=== PATIENT | female | born 1985 | race Asian ===

== ENCOUNTER → 2020-09-18 08:01 | Outpatient (CLI) | payer OTHER, SELFPAY ==
[2020-09-18 09:43] LABS: Alanine Aminotransferase 17 IU/L (<35); Albumin 4.7 g/dL (3.5-5.0); Albumin Globulin Ratio 1.5 (1.0-2.8); Alkaline Phosphatase 66 U/L (38-126); Aspartate Aminotransferase 28 IU/L (14-36); BUN Creatinine Ratio 15.2 (6-22); Bilirubin Total 0.8 mg/dL (0.2-1.3); Blood Urea Nitrogen 10 mg/dL (7-17); Calcium 11.1 mg/dL (8.4-10.2); Carbon Dioxide 28 mmol/L (22-32); Chloride 104 mmol/L (98-107); Cholesterol 240 mg/dL (140-199); Estimated Glomerular Filt Rate > 60.0 mL/min (>60); Globulin 3.1 g/dL (1.7-4.1); Glucose 98 mg/dL (70-100); HEMOLYSIS < 15 (0-50); Potassium 4.6 mmol/L (3.4-5.1); Sodium 136 mmol/L (137-145); Total Protein 7.8 g/dL (6.3-8.2); Triglycerides 88 mg/dL (35-150)
[2020-09-18 10:14] LABS: HDL Cholesterol 114 mg/dL (40-60); LDL Cholesterol Calculated 108 mg/dL (<100)
== END ==
PROVIDERS: PCP Family Medicine; Referring Provider Family Medicine; Visit Provider Family Medicine
DX: Z00.01 Encounter for general adult medical examination with abnormal findings (principal); R63.6 Underweight
CPT/HCPCS: 36415; 80053; 80061; 83036

== ENCOUNTER → 2020-09-30 11:48 | Outpatient (CLI) | payer OTHER, SELFPAY ==
[2020-10-01 09:36] LABS: Calcium 10.7 mg/dL (8.7-10.2); Parathyroid Hormone, Intact 33 pg/mL (15-65)
== END ==
PROVIDERS: PCP Family Medicine; Referring Provider Family Medicine; Visit Provider Family Medicine
DX: E83.52 Hypercalcemia (principal)
CPT/HCPCS: 36415; 82310; 83970

== ENCOUNTER → 2020-10-20 17:11 | Outpatient (CLI) | payer OTHER, SELFPAY ==
[2020-10-20 19:29] LABS: Vitamin D 25 Hydroxy (D3) 28.8 ng/mL (30.0-100.0)
== END ==
PROVIDERS: PCP Family Medicine; Referring Provider Family Medicine; Visit Provider Family Medicine
DX: E83.52 Hypercalcemia (principal)
CPT/HCPCS: 36415; 82306; 82397

== ENCOUNTER → 2020-12-30 12:11 | Outpatient (CLI) | payer OTHER, SELFPAY ==
[2020-12-30 13:26] LABS: Erythrocyte Sedimentation Rate 6 MM/HR (0-20)
[2020-12-30 15:51] LABS: C-Reactive Protein Quant < 0.5 mg/dL (<1.0)
[2020-12-30 15:56] LABS: Rheumatoid Factor < 8.6 IU/mL (<12.0)
[2021-01-01 19:40] LABS: ANA Screen, IFA Negative (.)
[2021-01-01 21:46] LABS: CCP Antibodies IgG/IgA 2 units (0-19)
== END ==
PROVIDERS: PCP Family Medicine; Referring Provider Family Medicine; Visit Provider Family Medicine
DX: E83.52 Hypercalcemia (principal); K55.1 Chronic vascular disorders of intestine; M25.519 Pain in unspecified shoulder; R63.6 Underweight
CPT/HCPCS: 36415; 85651; 86038; 86140; 86200; 86430

== ENCOUNTER → 2021-02-06 09:07 | Outpatient (CLI) | payer OTHER, SELFPAY ==
--- NOTE | 2021-02-06 09:08 | DI.RAD.S_ITS ---
PROCEDURE: XR SHOULDER RT MIN 2V INDICATIONS: right shoulder pain TECHNIQUE: 3 views of the shoulder were acquired. COMPARISON: None. FINDINGS: Bones: No fractures or dislocations but 2 of the three views show mild elevation of the clavicle in relationship to the acromion. This may indicate AC joint separation. No suspicious bony lesions. Visualized ribs appear intact. Soft tissues: No suspicious soft tissue calcifications. IMPRESSION: Ligamentous laxity versus separation at the AC joint, follow-up weight-bearing views may be warranted. Dictated by: Keith Munoz M.D. on 02/06/2021 at 10:01 Approved by: Keith Munoz M.D. on 02/06/2021 at 10:02
== END ==
PROVIDERS: PCP Family Medicine; Referring Provider Family Medicine; Visit Provider Family Medicine
DX: M25.511 Pain in right shoulder (principal); G89.29 Other chronic pain
CPT/HCPCS: 73030